=== PATIENT | female | born 1950 | race Caucasian/White ===

== ENCOUNTER → 2020-11-07 | Outpatient (CLI) | payer MEDICARE, OTHER ==
[~2020-11-07] MED LIST: ASPIRIN EC81 MG PO
== END ==
LOC: KOH-I 13:13
DX: M79.672 Pain in left foot (principal); M79.671 Pain in right foot
CPT/HCPCS: 73630

== ENCOUNTER → 2020-12-11 | Outpatient (CLI) | payer MEDICARE | LOC: HEART CORB 13:00 | DX: I11.0 Hypertensive heart disease with heart failure (principal); I50.32 Chronic diastolic (congestive) heart failure; R93.1 Abnormal findings on diagnostic imaging of heart and coronary circulation; I34.0 Nonrheumatic mitral (valve) insufficiency | CPT/HCPCS: 93306 ==